=== PATIENT | male | born 1960 ===

== ENCOUNTER 2020-10-13 08:26 | Emergency (ER) | payer OTHER ==
[~2020-10-13] VITALS: Ht 172.7 cm; Wt 90.7 kg
== END 2020-10-13 12:11 | disposition designated cancer center or children's hospital (05) ==
LOC: ER 08:26 → CPU-OBS 08:48 → ER 12:11
DX: I21.19 ST elevation (STEMI) myocardial infarction involving other coronary artery of inferior wall (principal); R07.89 Other chest pain